=== PATIENT | female | born 1995 | race African-American/Black ===

== ENCOUNTER 2017-03-14 13:29 | Emergency (ER) | payer MEDICAID ==
[~2017-03-14] VITALS: Ht 167.6 cm; Wt 52.6 kg
[2017-03-14 13:29] VITALS: BP 110/72
--- NOTE | 2017-03-14 14:15 | NUR ---
WOUND CARE PROVIDED. PT D/C HOME. STABLE CONDITION.
== END 2017-03-14 14:27 | disposition home or self-care (01) ==
LOC: ER 13:31
DX: S50.312A Abrasion of left elbow, initial encounter (principal); V00.131A Fall from skateboard, initial encounter; Y93.51 Activity, roller skating (inline) and skateboarding; Y92.89 Other specified places as the place of occurrence of the external cause; Y99.8 Other external cause status
CPT/HCPCS: A4606; A6402; Z7610